=== PATIENT | female | born 1965 | race Two or more races ===

== ENCOUNTER 2021-02-12 18:08 | Inpatient (IN) | payer MEDICAID ==
[~2021-02-12] VITALS: Ht 165.1 cm; Wt 123.0 kg
[2021-02-12] MEDS ORDERED: VANCOMYCIN 1 GM VIAL ONE (18:37)
[2021-02-12] MEDS ORDERED: PIPERACILLIN /TAZOBACTAM 3.375 G VIAL IV ONE (18:37)
[2021-02-12] MEDS ORDERED: ONDA4TAB5 PO (18:43)
[2021-02-12] MEDS ORDERED: MULT-24 PO (18:43)
[2021-02-12] MEDS ORDERED: LEVO125T8 PO (18:43)
[2021-02-12] MEDS ORDERED: ESCI10TA PO (18:43)
[2021-02-12] MEDS ORDERED: BENZ0.5T43 PO (18:43)
[2021-02-12] MEDS ORDERED: HALO5TAB PO ×2 (18:43)
[2021-02-12] MEDS ORDERED: NA P133E RC (18:43)
[2021-02-12] MEDS ORDERED: INSU100V7 SQ (18:43)
[2021-02-12] MEDS ORDERED: BISA10SU11 RC (18:43)
[2021-02-12] MEDS ORDERED: ZINC1CAP2 PO (18:43)
[2021-02-12] MEDS ORDERED: OMEP40CA13 PO (18:43)
[2021-02-12] MEDS ORDERED: ATOR40TA PO (18:43)
[2021-02-12] MEDS ORDERED: DIVA125C2 PO (18:43)
[2021-02-12] MEDS ORDERED: HYDR-4303 PO (18:43)
[2021-02-12] MEDS ORDERED: GLUC1KIT IM (18:43)
[2021-02-12] MEDS ORDERED: MAGN400O6 PO (18:43)
[2021-02-12] MEDS ORDERED: ASCO-352 PO (18:43)
[2021-02-12] MEDS ORDERED: ACET-868 PO (18:43)
[2021-02-12] MEDS ORDERED: INSU100V11 SQ (18:43)
[2021-02-12] MEDS ORDERED: ASPI-1169 PO (18:43)
[2021-02-12] MEDS ORDERED: PIOG45TA5 PO (18:43)
[2021-02-12] MEDS ORDERED: GEL100GE TD (18:43)
[2021-02-12] MEDS ORDERED: DILT60TA35 PO (18:43)
[2021-02-12] MEDS ORDERED: ARIP10TA9 PO (18:43)
[2021-02-12] MEDS ORDERED: ENOX40DI SQ (18:43)
[2021-02-12] MEDS ORDERED: VANCOMYCIN 1 GM in IV D5W 250 ML IV ONE (19:00)
[2021-02-12] MEDS ORDERED: PIPERACILLIN /TAZOBACTAM 3.375 G in IV D5W 50 ML IV ONE (19:00)
[2021-02-12 19:17] LABS: BASOPHILS # (AUTO) 0.1 /CMM (0.0-0.2); BASOPHILS % (AUTO) 1.1 % (0.0-2.0); EOSINOPHILS % (AUTO) 1.9 % (0.0-6.0); HEMATOCRIT 37 % (33-45); HEMOGLOBIN 12.1 g/dL (11.5-14.8); LYMPHOCYTES # (AUTO) 2.4 /CMM (0.8-4.8); LYMPHOCYTES % (AUTO) 47.2 % (20.0-44.0); MEAN CORPUSCULAR HGB CONC 33 g/dl (31.0-36.0); MEAN CORPUSCULAR VOLUME 100 fL (82-100); MONOCYTES # (AUTO) 0.4 /CMM (0.1-1.30); MONOCYTES % (AUTO) 7.7 % (2.0-12.0); NEUTROPHILS # (AUTO) 2.1 /CMM (1.8-8.9); NEUTROPHILS % (AUTO) 42.1 % (43.0-81.0); PLATELET COUNT (AUTO) 297 /CMM (150-450); RED BLOOD CELL COUNT(AUTO) 3.71 MIL/uL (4.0-5.2)
[2021-02-12 19:21] LABS: CALCIUM, SERUM 9.3 mg/dL (8.5-10.1); CARBON DIOXIDE 31 mmol/L (21-32); CHLORIDE 106 mmol/L (98-107); CREATININE 0.8 mg/dL (0.6-1.3); GLUCOSE 72 mg/dL (74-106); POTASSIUM 4.3 mmol/L (3.5-5.1); SODIUM SERUM 140 mmol/L (136-145); UREA NITROGEN, BLOOD 20 mg/dL (7-18)
[2021-02-12] MEDS ORDERED: MORPHINE SULFATE INJ 2 MG/ML DISP.SYRIN ONE (19:23)
[2021-02-12] MEDS ORDERED: MORPHINE SULFATE INJ 4 MG/ML DISP.SYRIN ONE (19:23)
[2021-02-12 19:27] LABS: ALANINE AMINOTRANSFERASE 34 U/L (12-78); ALBUMIN 2.7 g/dL (3.4-5.0); ALKALINE PHOSPHATASE 71 U/L (46-116); ASPARTATE AMINOTRANSFERASE 27 U/L (15-37); BILIRUBIN,TOTAL 0.2 mg/dL (0.2-1.0); TOTAL PROTEIN, SERUM 7.8 g/dL (6.4-8.2)
[2021-02-12] MEDS ORDERED: MORPHINE SULFATE INJ 2 MG/ML DISP.SYRIN IV ONE (19:30)
[2021-02-12 21:05] VITALS: BP 146/62
[2021-02-12] MEDS ORDERED: BISACODYL SUPP (10 MG) 10 MG/SUPP.RECT SUPP.RECT RC PRN (22:00)
[2021-02-12] MEDS ORDERED: Z GUARD REMEDY 2 OZ OINT TP PRN (22:00)
[2021-02-12] MEDS ORDERED: NA PHOS,M-B/NA PHOS,DI-BA 1 EA ENEMA RC PRN (22:00)
[2021-02-12] MEDS ORDERED: MAGNESIUM HYDROXIDE 30 ML UDC PO PRN (22:00)
[2021-02-12] MEDS: ATORVASTATIN 40 MG TABLET PO SCH (22:31)
[2021-02-12] MEDS: HYDROCODONE/APAP 5/325MG TABLET PO PRN (22:37)
[2021-02-13 04:00] VITALS: BP 133/56
[2021-02-13] MEDS: HYDROCODONE/APAP 5/325MG TABLET PO PRN ×2 (04:39→18:06)
[2021-02-13] MEDS: DILTIAZEM HCL 30 MG TABLET PO SCH ×3 (04:39→21:50)
[2021-02-13] MEDS ORDERED: PIPERACILLIN /TAZOBACTAM 3.375 G in IV D5W 50 ML IV SCH (05:00)
[2021-02-13 06:22] LABS: BASOPHILS % (AUTO) 0.1 % (0.0-2.0); EOSINOPHILS % (AUTO) 4.8 % (0.0-6.0); HEMATOCRIT 35 % (33-45); HEMOGLOBIN 11.5 g/dL (11.5-14.8); LYMPHOCYTES # (AUTO) 1.6 /CMM (0.8-4.8); LYMPHOCYTES % (AUTO) 45.7 % (20.0-44.0); MEAN CORPUSCULAR HGB CONC 33 g/dl (31.0-36.0); MEAN CORPUSCULAR VOLUME 100 fL (82-100); MONOCYTES # (AUTO) 0.3 /CMM (0.1-1.30); MONOCYTES % (AUTO) 8.4 % (2.0-12.0); NEUTROPHILS # (AUTO) 1.4 /CMM (1.8-8.9); PLATELET COUNT (AUTO) 268 /CMM (150-450); RED BLOOD CELL COUNT(AUTO) 3.54 MIL/uL (4.0-5.2); WHITE BLOOD COUNT (AUTO) 3.4 K/uL (4.3-11.0)
[2021-02-13 06:43] LABS: ALBUMIN 2.3 g/dL (3.4-5.0); BILIRUBIN,TOTAL 0.2 mg/dL (0.2-1.0); CALCIUM, SERUM 9.3 mg/dL (8.5-10.1); CREATININE 0.7 mg/dL (0.6-1.3); PHOSPHORUS 4.2 mg/dL (2.5-4.9); POTASSIUM 4.2 mmol/L (3.5-5.1); TOTAL PROTEIN, SERUM 6.8 g/dL (6.4-8.2)
[2021-02-13 07:00] LABS: THYROID STIMULATING HORMONE 4.469 uIU/mL (0.358-3.74)
[2021-02-13 08:00] VITALS: BP 135/60
[2021-02-13] MEDS ORDERED: VANCOMYCIN 1.5 GM in IV D5W 500 ML IV ONE ×2 (08:00→19:30)
[2021-02-13] MEDS: ACETAMINOPHEN 325 MG TABLET PO PRN (09:43)
[2021-02-13] MEDS: ARIPIPRAZOLE 5 MG TABLET PO SCH (09:44)
[2021-02-13] MEDS: ASCORBIC ACID 500 MG TABLET PO SCH ×2 (09:44→17:26)
[2021-02-13] MEDS: DIVALPROEX SODIUM 125 MG CAP.SPRINK PO SCH ×3 (09:44→17:26)
[2021-02-13] MEDS: ESCITALOPRAM OXALATE (10 MG) 10 MG TABLET PO SCH (09:44)
[2021-02-13] MEDS: HALOPERIDOL 5 MG TABLET PO SCH ×2 (09:45→17:27)
[2021-02-13] MEDS: ASPIRIN 81 MG TAB.CHEW PO SCH (09:45)
[2021-02-13] MEDS: MULTIVITAMINS,THERAGRAN 1 UDTAB TABLET PO SCH (09:45)
[2021-02-13] MEDS: ZINC SULFATE 220 MG CAPSULE PO SCH (09:45)
[2021-02-13] MEDS: LEVOTHYROXINE SODIUM 125 MCG TABLET PO SCH (09:45)
[2021-02-13] MEDS: BENZTROPINE MESYLATE (1 MG) 1 MG TABLET PO SCH ×2 (09:46→17:27)
[2021-02-13] MEDS: PANTOPRAZOLE 40 MG TABLET.DR PO SCH (09:46)
[2021-02-13] MEDS: ENOXAPARIN SODIUM 40 MG/0.4 ML DISP.SYRIN SQ SCH (09:51)
[2021-02-13] MEDS: ZOSYN IVPB 3.375 G in IV D5W 50ml IV SCH ×3 (12:00→23:29)
[2021-02-13 16:00] VITALS: BP 135/57
[2021-02-13] MEDS ORDERED: LORAZEPAM INJ 2 MG/ML VIAL IV PRN (19:00)
[2021-02-13 20:00] VITALS: BP 115/41
[2021-02-13] MEDS ORDERED: VANCOMYCIN 1.25 GM in IV D5W 250 ML IV SCH (20:00)
[2021-02-13] MEDS: ATORVASTATIN 40 MG TABLET PO SCH (21:50)
[2021-02-13] MEDS: ZOLPIDEM TARTRATE 5 MG TABLET PO PRN (22:37)
[2021-02-14] MEDS: DILTIAZEM HCL 30 MG TABLET PO SCH ×3 (05:00→20:06)
[2021-02-14] MEDS: ZOSYN IVPB 3.375 G in IV D5W 50ml IV SCH ×4 (05:01→23:18)
[2021-02-14 06:46] LABS: BASOPHILS % (AUTO) 0.5 % (0.0-2.0); EOSINOPHILS % (AUTO) 4.2 % (0.0-6.0); HEMATOCRIT 32 % (33-45); HEMOGLOBIN 10.4 g/dL (11.5-14.8); LYMPHOCYTES # (AUTO) 1.7 /CMM (0.8-4.8); LYMPHOCYTES % (AUTO) 46.7 % (20.0-44.0); MEAN CORPUSCULAR HGB CONC 33 g/dl (31.0-36.0); MEAN CORPUSCULAR VOLUME 99 fL (82-100); MONOCYTES # (AUTO) 0.3 /CMM (0.1-1.30); MONOCYTES % (AUTO) 8.6 % (2.0-12.0); NEUTROPHILS # (AUTO) 1.4 /CMM (1.8-8.9); PLATELET COUNT (AUTO) 236 /CMM (150-450); WHITE BLOOD COUNT (AUTO) 3.6 K/uL (4.3-11.0)
[2021-02-14 07:10] LABS: CALCIUM, SERUM 8.1 mg/dL (8.5-10.1); CREATININE 0.8 mg/dL (0.6-1.3); MAGNESIUM 1.8 mg/dL (1.8-2.4); PHOSPHORUS 4.2 mg/dL (2.5-4.9); POTASSIUM 4.3 mmol/L (3.5-5.1)
[2021-02-14 08:00] VITALS: BP 125/59
[2021-02-14] MEDS: VANCOMYCIN 1.25 GM in IV D5W 250 ML IV SCH ×2 (08:06→19:50)
[2021-02-14] MEDS: LEVOTHYROXINE SODIUM 125 MCG TABLET PO SCH (08:06)
[2021-02-14] MEDS: PANTOPRAZOLE 40 MG TABLET.DR PO SCH (08:08)
[2021-02-14] MEDS: MULTIVITAMINS,THERAGRAN 1 UDTAB TABLET PO SCH (08:09)
[2021-02-14] MEDS: ASCORBIC ACID 500 MG TABLET PO SCH ×2 (08:10→17:18)
[2021-02-14] MEDS: ASPIRIN 81 MG TAB.CHEW PO SCH (08:10)
[2021-02-14] MEDS: ARIPIPRAZOLE 5 MG TABLET PO SCH (08:10)
[2021-02-14] MEDS: ESCITALOPRAM OXALATE (10 MG) 10 MG TABLET PO SCH (08:13)
[2021-02-14] MEDS: BENZTROPINE MESYLATE (1 MG) 1 MG TABLET PO SCH ×2 (08:13→17:18)
[2021-02-14] MEDS: HALOPERIDOL 5 MG TABLET PO SCH ×2 (08:14→17:18)
[2021-02-14] MEDS: ZINC SULFATE 220 MG CAPSULE PO SCH (08:15)
[2021-02-14] MEDS: DIVALPROEX SODIUM 125 MG CAP.SPRINK PO SCH ×3 (08:17→17:18)
[2021-02-14] MEDS: ENOXAPARIN SODIUM 40 MG/0.4 ML DISP.SYRIN SQ SCH (08:18)
[2021-02-14] MEDS: THERAHONEY GEL 1.5 OZ TUBE TP SCH (08:18)
[2021-02-14] MEDS: HYDROCODONE/APAP 5/325MG TABLET PO PRN ×2 (11:10→17:55)
[2021-02-14 16:00] VITALS: BP 138/72
[2021-02-14] MEDS: ATORVASTATIN 40 MG TABLET PO SCH (21:07)
[2021-02-14] MEDS: ZOLPIDEM TARTRATE 5 MG TABLET PO PRN (21:07)
[2021-02-15] VITALS: BP 132/62
[2021-02-15 02:00] VITALS: BP 141/78
[2021-02-15] MEDS: ACETAMINOPHEN 325 MG TABLET PO PRN ×2 (02:52→11:07)
[2021-02-15] MEDS: MORPHINE SULFATE INJ 4 MG/ML DISP.SYRIN IV PRN ×3 (03:49→17:05)
[2021-02-15] MEDS: ZOSYN IVPB 3.375 G in IV D5W 50ml IV SCH ×3 (05:33→17:04)
[2021-02-15] MEDS: DILTIAZEM HCL 30 MG TABLET PO SCH ×2 (06:25→12:25)
[2021-02-15 06:50] LABS: BASOPHILS % (AUTO) 0.3 % (0.0-2.0); HEMATOCRIT 31 % (33-45); HEMOGLOBIN 10.2 g/dL (11.5-14.8); LYMPHOCYTES # (AUTO) 0.8 /CMM (0.8-4.8); LYMPHOCYTES % (AUTO) 23.7 % (20.0-44.0); MEAN CORPUSCULAR HGB CONC 33 g/dl (31.0-36.0); MEAN CORPUSCULAR VOLUME 98 fL (82-100); MONOCYTES # (AUTO) 0.4 /CMM (0.1-1.30); MONOCYTES % (AUTO) 11.6 % (2.0-12.0); NEUTROPHILS % (AUTO) 59.4 % (43.0-81.0); PLATELET COUNT (AUTO) 235 /CMM (150-450); RED BLOOD CELL COUNT(AUTO) 3.13 MIL/uL (4.0-5.2); WHITE BLOOD COUNT (AUTO) 3.3 K/uL (4.3-11.0)
[2021-02-15 07:37] LABS: ALBUMIN 2.2 g/dL (3.4-5.0); BILIRUBIN,TOTAL 0.2 mg/dL (0.2-1.0); CALCIUM, SERUM 8.9 mg/dL (8.5-10.1); CREATININE 0.7 mg/dL (0.6-1.3); MAGNESIUM 1.9 mg/dL (1.8-2.4); PHOSPHORUS 3.3 mg/dL (2.5-4.9); POTASSIUM 3.7 mmol/L (3.5-5.1); TOTAL PROTEIN, SERUM 6.5 g/dL (6.4-8.2)
[2021-02-15 08:00] VITALS: BP 142/66
[2021-02-15] MEDS: VANCOMYCIN 1.25 GM in IV D5W 250 ML IV SCH (08:00)
[2021-02-15] MEDS: HALOPERIDOL 5 MG TABLET PO SCH ×2 (08:36→17:54)
[2021-02-15] MEDS: ASPIRIN 81 MG TAB.CHEW PO SCH (08:36)
[2021-02-15] MEDS: ESCITALOPRAM OXALATE (10 MG) 10 MG TABLET PO SCH (08:36)
[2021-02-15] MEDS: ARIPIPRAZOLE 5 MG TABLET PO SCH (08:37)
[2021-02-15] MEDS: MULTIVITAMINS,THERAGRAN 1 UDTAB TABLET PO SCH (08:37)
[2021-02-15] MEDS: DIVALPROEX SODIUM 125 MG CAP.SPRINK PO SCH ×3 (08:37→16:49)
[2021-02-15] MEDS: PANTOPRAZOLE 40 MG TABLET.DR PO SCH (08:38)
[2021-02-15] MEDS: LEVOTHYROXINE SODIUM 125 MCG TABLET PO SCH (08:38)
[2021-02-15] MEDS: ZINC SULFATE 220 MG CAPSULE PO SCH (08:38)
[2021-02-15] MEDS: BENZTROPINE MESYLATE (1 MG) 1 MG TABLET PO SCH ×2 (08:38→16:49)
[2021-02-15] MEDS: ASCORBIC ACID 500 MG TABLET PO SCH ×2 (08:38→16:49)
[2021-02-15] MEDS: ENOXAPARIN SODIUM 40 MG/0.4 ML DISP.SYRIN SQ SCH (08:42)
[2021-02-15] MEDS: THERAHONEY GEL 1.5 OZ TUBE TP SCH (08:54)
[2021-02-15 16:00] VITALS: BP 112/68
[2021-02-15] MEDS ORDERED: VANCOMYCIN 1.25 GM in IV D5W 250 ML IV SCH (20:00)
[2021-02-15] MEDS ORDERED: VANCOMYCIN 1 GM in IV D5W 250ml IV SCH (20:00)
== END 2021-02-15 19:50 | DRG 380 ==
LOC: ER 18:12 → MEDSG1 19:45 → MED 02-15 01:40
PROVIDERS: ADMIT Internal Medicine
PROC: 05HD33Z Insertion of Infusion Device into Right Cephalic Vein, Percutaneous Approach (ICD-10-PCS; 2021-02-13)
PROC: 0JBR0ZZ Excision of Left Foot Subcutaneous Tissue and Fascia, Open Approach (ICD-10-PCS; principal; 2021-02-14)
PROC: 0JBQ0ZZ Excision of Right Foot Subcutaneous Tissue and Fascia, Open Approach (ICD-10-PCS; 2021-02-14)
DX: E11.621 Type 2 diabetes mellitus with foot ulcer (principal); L03.115 Cellulitis of right lower limb; L03.116 Cellulitis of left lower limb; E43 Unspecified severe protein-calorie malnutrition; J44.9 Chronic obstructive pulmonary disease, unspecified; F25.9 Schizoaffective disorder, unspecified; E66.9 Obesity, unspecified; Z68.42 Body mass index [BMI] 45.0-49.9, adult; D68.59 Other primary thrombophilia; E11.42 Type 2 diabetes mellitus with diabetic polyneuropathy; E03.9 Hypothyroidism, unspecified; Z20.822 Contact with and (suspected) exposure to COVID-19; E11.51 Type 2 diabetes mellitus with diabetic peripheral angiopathy without gangrene; F17.210 Nicotine dependence, cigarettes, uncomplicated; E66.01 Morbid (severe) obesity due to excess calories; F41.9 Anxiety disorder, unspecified; I10 Essential (primary) hypertension; L97.429 Non-pressure chronic ulcer of left heel and midfoot with unspecified severity; L97.419 Non-pressure chronic ulcer of right heel and midfoot with unspecified severity; Z79.82 Long term (current) use of aspirin; Z79.4 Long term (current) use of insulin; Z87.81 Personal history of (healed) traumatic fracture; Z98.1 Arthrodesis status; M85.80 Other specified disorders of bone density and structure, unspecified site; F31.9 Bipolar disorder, unspecified; E53.8 Deficiency of other specified B group vitamins; Z74.01 Bed confinement status
CPT/HCPCS: 36415; 71045-TC; 73650-TC; 80048-TC; 80053-TC; 80061-TC; 80076-TC; 80164-TC; 80202-TC; 83540-TC; 83605-TC; 83735-TC; 84100-TC; 84439-TC; 84443-TC; 84484-TC; 85025-TC; 85730-TC; 87040-TC; 87081-TC; A4217; A6253; A6403; C9803; G0378; J1650; J2060; J2270; J2543; J3370; J7050; J7060; U0003